=== PATIENT | female | born 1995 | race Caucasian/White ===

== ENCOUNTER 2019-03-05 19:10 | Emergency (ER) | payer MEDICAID, OTHER ==
[2019-03-05] MEDS ORDERED: MORPHINE SULFATE 4 MG INJ IV ONE (19:43)
[2019-03-05] MEDS ORDERED: Zofran 4 MG/2 ML VIAL IV ONE (19:43)
[2019-03-05] MEDS ORDERED: Sodium Chloride 0.9% 1000 ML 1,000 ML IV STA (19:43)
--- NOTE | 2019-03-05 19:47 | ERPHSYRPT ---
- History of Present Illness Time Seen by Provider: 03/05/19 19:32 Historian: patient Exam Limitations: no limitations Patient Subjective Stated Complaint: pt states, "I've been vomiitng since 0830 this morning, diarrhea, and feels light headed." Blood sugar has ran in the 300 's today which is high for her. Triage Nursing Assessment: pt ambulated to rm 6, alert and oriented. pt c/o nausea, vomiting, today and diarrhea yesterday. Pt's BS 93 on arrival. Lungs clear, heart tones reg, abd obese and soft with active bs x4 quad. Pt vomited at home 10 mins prior to her arrival to ER. Physician History: 24 yo IDDM well controlled presented with mild nausea since yesterday and since morning is having multiple episodes of non projectile/non bilious vomiting with no hematemesis. associated with gen abdominal pain of mild to moderate cramping. denies any sick contact. no fever or chills reported. Timing/Duration: today Activities at Onset: rest Quality: cramping Abdominal Pain Onset Location: generalized abdomen Pain Radiation: no radiation Severity of Pain-Max: moderate Severity of Pain-Current: moderate Modifying Factors: Improves With: vomiting Associated Symptoms: fatigue, nausea, vomiting, No diarrhea, No fever/chills, No heartburn Previous symptoms: no prior history Allergies/Adverse Reactions: No Known Drug Allergies Allergy (Unverified 09/19/11 12:52) Home Medications: Insulin Lispro [Humalog] 40 units SQ DAILY 09/19/11 [History] Levothyroxine Sodium 100 Mcg [Synthroid 100 Mcg] 100 mcg PO DAILY 03/05/19 [History] Levothyroxine Sodium 112 Mcg [Synthroid 112 Mcg] 112 mcg PO DAILY 03/05/19 [History] Hx Tetanus, Diphtheria Vaccination/Date Given: Yes Hx Influenza Vaccination/Date Given: Yes Hx Pneumococcal Vaccination/Date Given: No Immunizations Up to Date: Yes - Review of Systems Constitutional: Fatigue Eyes: No Symptoms Ears, Nose, & Throat: No Symptoms Respiratory: No Symptoms Cardiac: No Symptoms Abdominal/Gastrointestinal: Abdominal Pain, Nausea, Vomiting, No Diarrhea, No Hematemesis Genitourinary Symptoms: No Symptoms Musculoskeletal: No Symptoms Neurological: No Symptoms Psychological: No Symptoms Endocrine: No Symptoms Hematologic/Lymphatic: No Symptoms Immunological/Allergic: No Symptoms - Past Medical History Pertinent Past Medical History: Yes Neurological History: No Pertinent History ENT History: No Pertinent History Cardiac History: No Pertinent History Respiratory History: No Pertinent History Endocrine Medical History: Diabetes Type I, Hypothyroidism Musculoskeletal History: No Pertinent History GI Medical History: Gallbladder Disease History: No Pertinent History Psycho-Social History: Bipolar, Depression Female Reproductive Disorders: Menstrual Problems - Past Surgical History Past Surgical History: Yes Neuro Surgical History: No Pertinent History Cardiac: No Pertinent History Respiratory: No Pertinent History Gastrointestinal: Cholecystectomy Genitourinary: No Pertinent History Musculoskeletal: No Pertinent History Female Surgical History: No Pertinent History - Social History Smoking Status: Never smoker Exposure to second hand smoke: No Drug Use: none Patient Lives Alone: No - Female History Hx Last Menstrual Period: 02/07/19 Hx Now: No - Nursing Vital Signs Nursing Vital Signs: Initial Vital Signs Temperature 98.0 F 03/05/19 19:21 Pulse Rate 122 H 03/05/19 19:21 Respiratory Rate 17 03/05/19 19:21 Blood Pressure 121/83 03/05/19 19:21 O2 Sat by Pulse Oximetry 97 03/05/19 19:21 Pain Scale Pain Intensity 10 - Physical Exam General Appearance: no apparent distress Eye Exam: eyes nml inspection Ears, Nose, Throat Exam: normal ENT inspection, pharynx normal Neck Exam: normal inspection, non-tender, supple, full range of motion Respiratory Exam: normal breath sounds, lungs clear Cardiovascular Exam: normal heart sounds, tachycardia Gastrointestinal/Abdomen Exam: soft, normal bowel sounds, tenderness (mild generalized with no guarding or rebound ) Back Exam: normal inspection, normal range of motion, No CVA tenderness Extremity Exam: normal inspection, normal range of motion Neurologic Exam: alert, oriented x 3, cooperative Skin Exam: normal color, warm SpO2 Interpretation: normal SpO2: 97 O2 Delivery: Room Air Ordered Tests: Active Orders 24 hr Category Date Time Status IV Insertion STAT Care 03/05/19 19:43 Active OBSTR/ACUTE ABDOMEN SERIES Stat Exams 03/05/19 19:43 Taken CBC W DIFF Stat Lab 03/05/19 20:40 Completed CMP Stat Lab 03/05/19 20:40 Completed HCG QUALITATIVE,SERUM Stat Lab 03/05/19 20:40 Completed LIPASE Stat Lab 03/05/19 20:40 Completed UA W/RFX UR CULTURE Stat Lab 03/05/19 21:15 Completed Medication Summary Discontinued Medications Generic Name Dose Route Start Last Admin Trade Name Hector PRN Reason Stop Dose Admin Sodium Chloride 1,000 mls @ 999 mls/hr 03/05/19 19:43 Sodium Chloride 0.9% 1000 Ml IV 03/05/19 20:43 .Q1H1M STA Morphine Sulfate 4 mg 03/05/19 19:43 Morphine Sulfate 4 Mg Inj IV 03/05/19 19:44 STAT ONE Morphine Sulfate 4 mg 03/05/19 20:47 03/05/19 20:56 Morphine Sulfate 4 Mg Inj IM 03/05/19 20:48 4 mg STAT ONE Administration Morphine Sulfate Confirm 03/05/19 20:54 Morphine Sulfate 4 Mg Inj Administered 03/05/19 20:55 Dose 4 mg .ROUTE .STK-MED ONE Ondansetron HCl 4 mg 03/05/19 19:43 Zofran 4 Mg/2 Ml Vial IV 03/05/19 19:44 STAT ONE Ondansetron HCl Confirm 03/05/19 20:53 Zofran Odt 4 Mg Administered 03/05/19 20:54 Dose 4 mg .ROUTE .STK-MED ONE Ondansetron HCl 4 mg 03/05/19 20:57 03/05/19 20:59 Zofran Odt 4 Mg PO 03/05/19 20:58 4 mg STAT ONE Administration Lab/Rad Data: Laboratory Result Diagrams 03/05/19 20:40 03/05/19 20:40 Laboratory Results 03/05/19 03/05/19 03/05/19 Range/Units 21:15 20:40 20:40 WBC (4.0-10.5) K/mm3 RBC (4.1-5.4) M/mm3 Hgb (12.0-16.0) gm/dl Hct (35-47) % MCV (78-100) fl MCH (26-32) pg MCHC (32-36) g/dl RDW (11.5-14.0) % Plt Count (150-450) K/mm3 MPV (6-9.5) fl Gran % (36.0-66.0) % Eos # (Auto) (0-0.5) Absolute Lymphs (auto) (1.0-4.6) Absolute Monos (auto) (0.0-1.3) Lymphocytes % (24.0-44.0) % Monocytes % (0.0-12.0) % Eosinophils % (0.00-5.0) % Basophils % (0.0-0.4) % Absolute Granulocytes (1.4-6.9) Basophils # (0-0.4) Sodium 140 (137-145) mmol/L Potassium 4.0 (3.5-5.1) mmol/L Chloride 106 (98-107) mmol/L Carbon Dioxide 26 (22-30) mmol/L Anion Gap 12.4 (5-15) MEQ/L BUN 16 (7-17) mg/dL Creatinine 0.62 (0.52-1.04) mg/dL Estimated GFR > 60.0 ML/MIN Glucose 106 (74-106) mg/dL Calcium 9.0 (8.4-10.2) mg/dL Total Bilirubin 0.90 (0.2-1.3) mg/dL AST 20 (14-36) U/L ALT 15 (0-35) U/L Alkaline Phosphatase 132 H (38-126) U/L Serum Total Protein 7.6 (6.3-8.2) g/dL Albumin 4.2 (3.5-5.0) g/dL Lipase < 10 L (23-300) U/L Serum , Qual NEGATIVE (Negative) Urine Color YELLOW (YELLOW) Urine Appearance SLIGHTLY CLOUDY (CLEAR) Urine pH 6.0 (5-6) Ur Specific [place] 1.026 (1.005-1.025) Urine Protein NEGATIVE (Negative) Urine Ketones SMALL (NEGATIVE) Urine Blood NEGATIVE (0-5) Josse/ul Urine Nitrite NEGATIVE (NEGATIVE) Urine Bilirubin NEGATIVE (NEGATIVE) Urine Urobilinogen 2 (0-1) mg/dL Ur Leukocyte Esterase NEGATIVE (NEGATIVE) Urine WBC (Auto) NONE (0-5) /HPF Urine RBC (Auto) NONE (0-2) /HPF U Epithel Cells (Auto) RARE (FEW) /HPF Urine Bacteria (Auto) NONE (NEGATIVE) /HPF Urine Mucus (Auto) SLIGHT (NEGATIVE) /HPF Urine Culture Reflexed NO (NO) Urine Glucose NEGATIVE (NEGATIVE) mg/dL 03/05/19 Range/Units 20:40 WBC 10.1 (4.0-10.5) K/mm3 RBC 4.31 (4.1-5.4) M/mm3 Hgb 14.0 (12.0-16.0) gm/dl Hct 39.2 (35-47) % MCV 91.0 (78-100) fl MCH 32.5 H (26-32) pg MCHC 35.7 (32-36) g/dl RDW 13.2 (11.5-14.0) % Plt Count 208 (150-450) K/mm3 MPV 9.6 H (6-9.5) fl Gran % 84.0 H (36.0-66.0) % Eos # (Auto) 0.04 (0-0.5) Absolute Lymphs (auto) 0.97 L (1.0-4.6) Absolute Monos (auto) 0.60 (0.0-1.3) Lymphocytes % 9.6 L (24.0-44.0) % Monocytes % 5.9 (0.0-12.0) % Eosinophils % 0.4 (0.00-5.0) % Basophils % 0.1 (0.0-0.4) % Absolute Granulocytes 8.47 H (1.4-6.9) Basophils # 0.01 (0-0.4) Sodium (137-145) mmol/L Potassium (3.5-5.1) mmol/L Chloride (98-107) mmol/L Carbon Dioxide (22-30) mmol/L Anion Gap (5-15) MEQ/L BUN (7-17) mg/dL Creatinine (0.52-1.04) mg/dL Estimated GFR ML/MIN Glucose (74-106) mg/dL Calcium (8.4-10.2) mg/dL Total Bilirubin (0.2-1.3) mg/dL AST (14-36) U/L ALT (0-35) U/L Alkaline Phosphatase (38-126) U/L Serum Total Protein (6.3-8.2) g/dL Albumin (3.5-5.0) g/dL Lipase (23-300) U/L Serum , Qual (Negative) Urine Color (YELLOW) Urine Appearance (CLEAR) Urine pH (5-6) Ur Specific [place] (1.005-1.025) Urine Protein (Negative) Urine Ketones (NEGATIVE) Urine Blood (0-5) Josse/ul Urine Nitrite (NEGATIVE) Urine Bilirubin (NEGATIVE) Urine Urobilinogen (0-1) mg/dL Ur Leukocyte Esterase (NEGATIVE) Urine WBC (Auto) (0-5) /HPF Urine RBC (Auto) (0-2) /HPF U Epithel Cells (Auto) (FEW) /HPF Urine Bacteria (Auto) (NEGATIVE) /HPF Urine Mucus (Auto) (NEGATIVE) /HPF Urine Culture Reflexed (NO) Urine Glucose (NEGATIVE) mg/dL - Progress Progress: improved, re-examined Progress Note: 03/05/19 21:54 24 years old is evaluated for abdominal pain with nausea and vomiting. Patient is a hard stick, could not get IV. She is given oral Zofran and IM morphine , patient feeling much better on reevaluation. No peritoneal signs. Unremarkable workup for any acute findings. The patient is tolerating oral very well while in here. No vomiting in emergency room. I would give her Zofran to go home.. Supportive care. This could be viral etiology. Discussed signs and symptoms of worsening return to ER which he seems understanding. Stable for discharge. Counseled pt/family regarding: lab results, diagnosis, need for follow-up, rad results - Departure Departure Disposition: Home Clinical Impression: Nausea & vomiting Qualifiers: Vomiting type: unspecified Vomiting Intractability: non-intractable Qualified Code(s): R11.2 - Nausea with vomiting, unspecified Condition: Stable Critical Care Time: No Referrals: SHAWNA TAPIA [Primary Care Provider] - Follow Up with PCP/3 days Additional Instructions: drink plenty of fluids. Take Tylenol as needed. Monitor blood sugar regularly. Return to ER for any worsening. Prescriptions: Ondansetron ODT 4 MG [Zofran Odt 4 mg] 4 mg PO Q6H PRN PRN #7 tab.rapdis PRN Reason: Vomiting
[2019-03-05 20:44] LABS: Absolute Neutrophil Ct (ANC) 8.47 (1.4-6.9); BASOPHIL % 0.1 % (0.0-0.4); Basophil (Absolute #) 0.01 (0-0.4); Eosinophil % 0.4 % (0.00-5.0); Eosinophil (Absolute #) 0.04 (0-0.5); Hematocrit 39.2 % (35-47); Lymphocyte (Absolute #) 0.97 (1.0-4.6); Lymphocytes % 9.6 % (24.0-44.0); Mean Corpuscular Hemoglobin 32.5 pg (26-32); Mean Corpuscular Hgb Concent. 35.7 g/dl (32-36); Mean Platelet Volume 9.6 fl (6-9.5); Monocytes % 5.9 % (0.0-12.0); Platelet Count 208 K/mm3 (150-450); Red Blood Count 4.31 M/mm3 (4.1-5.4); Red Cell Distribution Width 13.2 % (11.5-14.0); White Blood Count 10.1 K/mm3 (4.0-10.5)
[2019-03-05] MEDS ORDERED: MORPHINE SULFATE 4 MG INJ IM ONE (20:47)
[2019-03-05] MEDS ORDERED: ZOFRAN ODT 4 MG ONE (20:53)
[2019-03-05] MEDS ORDERED: MORPHINE SULFATE 4 MG INJ ONE (20:54)
[2019-03-05 20:55] LABS: ALBUMIN 4.2 g/dL (3.5-5.0); ALKALINE PHOSPHATASE 132 U/L (38-126); ANION GAP 12.4 MEQ/L (5-15); BLOOD UREA NITROGEN 16 mg/dL (7-17); CHLORIDE 106 mmol/L (98-107); Carbon Dioxide 26 mmol/L (22-30); Creatinine 1 0.62 mg/dL (0.52-1.04); Glucose 106 mg/dL (74-106); SGOT/AST 20 U/L (14-36); SGPT/ALT 15 U/L (0-35); SODIUM 140 mmol/L (137-145); Total Protein 7.6 g/dL (6.3-8.2)
[2019-03-05] MEDS ORDERED: ZOFRAN ODT 4 MG PO ONE (20:57)
[2019-03-05 21:01] LABS: LIPASE < 10 U/L (23-300)
[2019-03-05 21:39] LABS: Appearance SLIGHTLY CLOUDY (CLEAR); Bilirubin NEGATIVE (NEGATIVE); Blood NEGATIVE Ery/ul (0-5); Epithelial Cells RARE /HPF (FEW); Glucose NEGATIVE (NEGATIVE); Ketones SMALL (NEGATIVE); Leukocyte Esterase NEGATIVE (NEGATIVE); Mucus SLIGHT /HPF (NEGATIVE); Nitrite NEGATIVE (NEGATIVE); Protein,Urine Dip NEGATIVE (Negative); Specific Gravity 1.026 (1.005-1.025); Urobilinogen 2 mg/dL (0-1)
[2019-03-05 22:04] VITALS: BP 114/56; PULSE 96; O2SAT 100
--- NOTE | 2019-03-06 08:58 | XRAY ---
Indication: Vomiting. Comparison: Chest exam April 30, 2012. 2 views of the abdomen nonacute and nonobstructed. Solid organs and osseous structures are unremarkable. Single frontal chest again demonstrates normal heart, lungs, and bony thorax. Impression: Negative abdomen. Normal 1 view chest.
== END 2019-03-05 22:04 | disposition home or self-care (01) ==
LOC: ED 19:10
DX: R11.2 Nausea with vomiting, unspecified (principal); R19.7 Diarrhea, unspecified; R42 Dizziness and giddiness; R53.83 Other fatigue; E10.9 Type 1 diabetes mellitus without complications; E03.9 Hypothyroidism, unspecified
CPT/HCPCS: 36415; 74022; 80053; 81001; 81025; 82962; 83690; 85025; 96372; 99284; J2270; Q0162